=== PATIENT | male | born 1980 | race Caucasian/White ===

== ENCOUNTER 2017-07-24 15:55 | Inpatient (IN) | payer OTHER ==
[~2017-07-24] VITALS: Ht 180.3 cm; Wt 113.4 kg
[~2017-07-24 15:55] MED LIST: FLONASE2 SPRAY; IBUPROFEN800 MG PO; LIPITOR20 MG PO; NORCO 5-325 TA1 EACH PO; OMEPRAZOLE20 MG PO; PATANOL5 ML OU; PERCOCET 5-3251 EACH PO; SIMVASTATIN20 MG; SUDAFED30 MG PO
[2017-07-24] MEDS ORDERED: KEFLEX500 MG PO (16:16)
--- NOTE | 2017-07-24 16:46 | NUR ---
ADMISSION PROCESS COMPLETED. PT RESTING IN BED. FAMILY AT BEDSIDE. PT DENIES NEEDS AT THIS TIME
--- NOTE | 2017-07-24 18:30 | NUR ---
PT DIRECT ADMIT TODAY. PT AT OR FOR I&D OF PERIRECTAL ABCESS.
--- NOTE | 2017-07-24 18:59 | NUR ---
07/24/171858 Dimple Aparicio 1846: PT ARRIVES TO PACU C/O A HEADACHE. DENIES PAIN IN THE SURGICAL AREA. PT IS COUGHING, INTERNET RETAILER CHECKS HIS LUNGS AND REPORTS THEY ARE CLEAR.
--- NOTE | 2017-07-24 19:38 | NUR ---
PATIENT ARRIVES FROM PACU AT 1935 - ABD PAD BETWEEN BUTTOCKS AT SURGICAL SITE - SMALL AMOUNT OF BLOODY DRAINAGE
--- NOTE | 2017-07-24 21:01 | NUR ---
ABD PAD TO LUCIANA-RECTAL I@D SITE CHANGED, PATIENT HAS SCD'S IN PLACE.
--- NOTE | 2017-07-24 22:51 | NUR ---
PATIENT STANDS UP AT BEDSIDE, WALKS AT BEDSIDE, PAIN RATED 3/10 AT THIS TIME.
--- NOTE | 2017-07-25 | NUR ---
PATIENT PAIN WELL CONTROLLED AND RATED 2/10
--- NOTE | 2017-07-25 01:52 | NUR ---
PATIENT UP AND AMBULATES TO BATHROOM. VOIDS 950ML, ABD PAD CHANGED TO LUCIANA-RECTAL I&D SITE. MEDIUM AMOUNT OF SEROSANGUINEOUS FLUID ON CHANGED ABD PAD.
--- NOTE | 2017-07-25 05:46 | NUR ---
PATIENT HAD GOOD NIGHT. PAIN WELL CONTROLLED WITH MORPHINE. ABD PAD TO LUCIANA-RECTAL I&D SITE CHANGED NEEDED. IV FLUIDS AND IV ABX INFUSING PER ORDER. PATIENT HAS BEEN UP IN ROOM TO BATHROOM AND VOIDS. SCD'S WHILE IN BED.
--- NOTE | 2017-07-25 08:30 | NUR ---
PT RESTING IN BED. PT ON ROOM AIR, LUNG SOUNDS CLEAR. PT TOLERATING REGULAR DIET, DENIES NAUSEA, BOWEL TONES ACTIVE, PASSING FLATUS. PT ASSISTED WITH ORDERING BREAKFAST. PT CMS INATCT. PT WITH ABCESS TO LEFT BUTTOCK, DRAIN IN PLACE, ABD PAD CHANGED, MODERATE AMOUNT FO SEROSANGUINOUS FLUID. IV ABX INFUSING. PT DENIES PAIN AT THIS TIME. PT DENIES OTHER NEEDS AT THIS TIME.
[2017-07-25] MEDS ORDERED: PERCOCET 7.5-31 EACH PO (09:56)
[2017-07-25] MEDS ORDERED: CIPRO500 MG PO (09:56)
[2017-07-25] MEDS ORDERED: FLAGYL250 MG PO (09:57)
--- NOTE | 2017-07-25 10:19 | NUR ---
PT WALKING IN NORTH WITH FAMILY.
--- NOTE | 2017-07-25 13:07 | NUR ---
PATIENT TOOK A SITZ BATH THAN A SHOWER WITH THE HELP OF SINIFICANT OTHER.
--- NOTE | 2017-08-02 13:40 | OR ---
[facility] [address], [place] [address] Signed DATE OF PROCEDURE: 07/24/17 PREOPERATIVE DIAGNOSIS: Large left perirectal abscess. POSTOPERATIVE DIAGNOSIS: Large left ischial rectal abscess (complex). PROCEDURES Exam under anesthesia. Incision and drainage and culture of left ischiorectal abscess. Placement of taser type Ingalls drain as well as yellow vessel loop seton of perirectal space and packing with quarter-inch NuGauze. SURGEON: Miladys Tyler MD. ANESTHESIA: Saddle block with intravenous sedation. ANESTHESIOLOGIST: Hitesh De Anda CRNA INDICATION This 36-year-old white man is a patient Dr. Thierno Jolly, and Friday nearly a week ago, began having some left perirectal pain. Over the ensuing several days, he began having temperature as high as 101. He saw ROD Linton, in Dr. Jolly's office a d ay ago and was put on Keflex, has a firm, tender perirectal process as noted on the left side. I was called by Dr. Jolly today and asked to see the patient today at 3:00. He clearly has a large perirectal abscess, and on that basis, I have recommended incision, drainage and so on. He has been admitted to the hospital, given broad-spectrum antibiotics and so on. He understands the risks of bleeding, infection, possible development of qyjqykw-ym-scs long-term so forth and wished to proceed. Notably, his white count preoperatively was 15.9. Other lab studies of the CBC are normal as is the basic metabolic panel. FINDINGS A firm wall near the anal canal was noted in the left perirectal area. This was at least 4 fingerbreadths in size. Incision and drainage confirmed a very large complex abscess and with further evaluation, this is in fact an ischiorectal abscess. Ultimately, he was treated with complete drainage and irrigation, a seton-like yellow vessel loop placement not through the anal canal proper but lateral to it and placement of a knotted quarter-inch Amelia taser in the pararectal space. NuGauze packing was used as well for hemostasis. He tolerated procedure well. Notably, at the conclusion of operation upon body position change, he did have a slight bit of regurgitation of nonbilious material, which did cause a fair amount of coughing, Electronically Signed By: MILADYS TYLER MD 08/02/17 1340 PATIENT NAME: TEQUILA JIANG OPERATIVE REPORT DATE OF : 78 PHYSICIAN: MILADYS TYLER MD REPORT #: [id number] REPORT IS CONFIDENTIAL AND NOT TO BE RELEASED WITHOUT AUTHORIZATION [facility] [address], [place] [address] Signed but he is not known to have had aspiration proper. DESCRIPTION OF PROCEDURE The patient was brought to the operating room after undergoing saddle block anesthetic in the preop staging area. He was placed in the prone lisa-knife position. He was given intravenous sedation. Preoperative antibiotic meropenem had been given. Sequential compression device stockings were used. The buttocks were taped apart and the perianal tissue prepared with a Betadine based solution. Palpation of the left perianal area showed a broad plaque-like change without sign of skin erosion. There was a fluctuant mass. The incision was made a few centimeters only from the anoderm with an 11 blade and probing with a hemostat allowed for egress of copious amounts of foul-smelling purulent material. This area was probed more fully and the purulent material milked out. Photographs were taken. Gentle probing cephalad showed it extended to the pararectal space. A tonsil clamp was used to affirm this. It went up to about 7-8 cm. Lateral to the initial incision site, a counter incision was ultimately made and a yellow vessel loop passed between the 2 incision sites. This allowed for irrigation of the space with sterile saline solution. Once all the pus was removed, the firm plaque-like mass in the perirectal space was completely softened. Given the pararectal (ischiorectal) abscess as the dominant component of the problem, a quarter-inch Ingalls drain was made to have a knot in the end to allow for its retention into the wound. It was then gently passed alongside the rectum. There was some egress of blood and therefore a quarter-inch Nu Gauze was packed until good hemostasis was assured. Photographs were taken once again. A peripad was applied as were stretched shorts and returned to the supine position somewhat upright. This did allow for some apparent regurgitation, but not of bilious material or food or anything as the stomach was empty. This did cause a fair amount of coughing and so forth. I do not believe that he had an aspiration episode proper, however. The patient was taken to recovery room for further management, having suffered minimal blood loss. Miladys Tyler MD Electronically Signed By: MILADYS TYLER MD 08/02/17 2954 PATIENT NAME: TEQUILA JIANG OPERATIVE REPORT DATE OF : 78 PHYSICIAN: MILADYS TYLER MD REPORT #: [id number] REPORT IS CONFIDENTIAL AND NOT TO BE RELEASED WITHOUT AUTHORIZATION [facility] [address] [place] [address] Signed JM/Modl /[id number] cc: ROD Linton MD Electronically Signed By: MILADYS TYLER MD 08/02/17 1340 PATIENT NAME: TEQUILA JIANG OPERATIVE REPORT DATE OF : 78 PHYSICIAN: MILADYS TYLER MD REPORT #: [id number] REPORT IS CONFIDENTIAL AND NOT TO BE RELEASED WITHOUT AUTHORIZATION
--- NOTE | 2017-08-02 13:40 | HP ---
[facility] [address] [place], [place] [address] Signed DATE OF ADMISSION: 07/24/17 REASON FOR ADMISSION: Left perirectal abscess. HISTORY OF PRESENT ILLNESS This 36-year-old white man is known to me from the past, having undergone appendectomy in 2012. He works at the [employer], though he lives in [place]. 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 On Friday (today is ), he began having vague left abdominal pain and by Friday had fevers to 101-102 degrees. He was treated with Tylenol, which improved his fever, but his pain worsened and he was having difficulty sitting. By Friday, it was very painful to sit. On Friday, he had no fever and went to school, which he says was "a mistake" as his symptoms worsened. By Friday, his left perianal area was firm and quite painful and he saw a Physician Branch Employment Coordinator at Dr. Thierno Jolly's office where Keflex was prescribed. I was called by Dr. Jolly today with these findings and concern made for possible perirectal abscess. I saw him in my office at approximately 3:00 p.m. today where clinical examination is confirmatory of probable left perirectal abscess. He is admitted for further evaluation and care, likely to include incision and drainage of the abscess this evening. PAST MEDICAL HISTORY Rather unremarkable except for his appendectomy in 2012. He does have reflux disease and takes Prilosec and uses Atorvastatin for dyslipidemia. He has had some diarrhea and some constipation. There has been some question in the past whether he may have Crohn's disease, though that has not proven to be the case based on testing. REVIEW OF SYSTEMS He denies any shortness of breath or chest pain. He has had no dysphagia or dysuria. As far as eating, he has not had anything to eat essentially all day except for a few sips of water with Tylenol pills for pain. PHYSICAL EXAMINATION GENERAL: Pleasant white man who looks to be mildly uncomfortable. He does not look systemically toxic. He is accompanied by his . VITAL SIGNS: Blood pressure is 98/60, pulse 80, temperature 97.2, height 5 feet 11 inches, weight 250 pounds. NECK: Shows no thyromegaly or cervical adenopathy. Trachea is midline. He has no hoarseness. Electronically Signed By: MILADYS TYLER MD 08/02/17 1340 PATIENT NAME: TEQUILA JIANG HISTORY AND PHYSICAL DATE OF : 78 PHYSICIAN: MILADYS TYLER MD REPORT #: [id number] REPORT IS CONFIDENTIAL AND NOT TO BE RELEASED WITHOUT AUTHORIZATION [facility] [address] [place], [place] [address] Signed CHEST: Clear. HEART: Regular without murmur. ABDOMEN: Obese, but soft. RECTAL: Examination in the prone lisa-knife position shows a firm plaque-like thickening of the left perianal area consistent with nondrained abscess. There is local tenderness. The right side and anterior and posterior aspects are normal. EXTREMITIES: Show no clubbing, cyanosis, or edema. ASSESSMENT The patient almost certainly has a perirectal abscess. This may be greater in size than expected and indeed may be an ischiorectal abscess. I would recommend examination under anesthesia, incision and drainage and placement of drains as appropriate. The risks of bleeding, infection, and recurrence were reviewed in detail. There was a 10% chance he may develop a makhokd-xn-sfb, which may require advanced therapy as well. He understands this. MD ESTELLE Ramirez/Meena /[id number] cc: MD Griselda Sotelo PA-C Electronically Signed By: MILADYS TYLER MD 08/02/17 1340 PATIENT NAME: TEQUILA JIANG HISTORY AND PHYSICAL DATE OF : 78 PHYSICIAN: MILADYS TYLER MD REPORT #: [id number] REPORT IS CONFIDENTIAL AND NOT TO BE RELEASED WITHOUT AUTHORIZATION
== END 2017-07-25 12:10 | disposition home or self-care (01) | DRG 395 ==
LOC: MS 15:55
PROVIDERS: ADMIT Surgery
PROC: 0J9B00Z Drainage of Perineum Subcutaneous Tissue and Fascia with Drainage Device, Open Approach (ICD-10-PCS; principal; 2017-07-24 18:00)
PROC: 3E0234Z Introduction of Serum, Toxoid and Vaccine into Muscle, Percutaneous Approach (ICD-10-PCS; 2017-07-25)
DX: K61.3 Ischiorectal abscess (principal); K21.9 Gastro-esophageal reflux disease without esophagitis; E78.5 Hyperlipidemia, unspecified; Z23 Encounter for immunization
CPT/HCPCS: 00902; 62322; 80048; 85025; 87070; 87075; 87076; 87077; 87185; 87186; 87205; 90674; 94640; G0008; J1100; J2185; J2250; J2270; J2704; J3010; J7120

== ENCOUNTER 2019-11-15 21:39 | Emergency (ER) | payer OTHER ==
[~2019-11-15] VITALS: Ht 182.9 cm; Wt 124.7 kg
[~2019-11-15 21:39] MED LIST changes: +CIPRO500 MG PO; +FLAGYL250 MG PO; +IBUPROFEN600 MG PO; +KEFLEX500 MG PO; +MAPAP325 MG PO; +PERCOCET 7.5-31 EACH PO
== END 2019-11-15 23:04 | disposition home or self-care (01) ==
LOC: ED 21:39
DX: J20.9 Acute bronchitis, unspecified (principal); Z79.899 Other long term (current) drug therapy
CPT/HCPCS: 99284

== ENCOUNTER 2022-01-01 06:00 | Day surgery (SDC) | payer OTHER ==
[~2022-01-01] VITALS: Ht 182.9 cm; Wt 129.5 kg
--- NOTE | ~2022-01-01 | OR ---
[facility] [address] [place], [place] [address] Draft DATE OF OPERATION: 01/01/2022 SURGEON: Miladys Tyler MD PREOPERATIVE DIAGNOSIS: Left posterior vuwnhlq-cn-tks. POSTOPERATIVE DIAGNOSIS: Left posterior wghqzjl-oo-fnk. PROCEDURE: 1. Exam under anesthesia. 2. Anal fistulotomy. ANESTHESIA: Saddle block, Adri Melara CRNA and local 7 mL of 0.25% Marcaine with epinephrine. INDICATION: This 41-year-old white man has recurrent left perirectal abscess, which was treated by incision and drainage and placement of a yellow vessel loop seton. The seton has remained in place along with good fibrosis of the surrounding anorectal tissue can be relied upon. His initial 2nd drainage was on November 16, 2021. The risk of bleeding, infection, variable degrees of incontinence and so forth were all reviewed with him. He understands and wished to proceed. FINDINGS: The seton allowed for good fibrosis of the underlying soft tissue. Extensive excision was not required. Specifically, no significant anal muscle was divided. The site was divided with electrocautery and curettage. Examination showed no sign of persistent anal fistula to the anal canal. DESCRIPTION OF PROCEDURE: The patient was brought to the operating room after undergoing a saddle block anesthetic and placed in prone lisa-knife position. Buttocks were taped apart and the perirectal areas prepared with a chlorhexidine base solution. Digital examination showed no anorectal abnormality specifically. An anal retractor was then placed. In the left posterior aspect, a yellow vessel loop was well secured to the soft tissue. It did not emanate from the crypt itself and was somewhat superficial to it. It appeared that good fibrosis beneath the area of the seton was noted. The tissue was divided with electrocautery and the seton removed. Curettage was undertaken showing no sign of PATIENT NAME: TEQUILA JIANG OPERATIVE REPORT DATE OF : 78 REPORT #: [id number] PHYSICIAN: MILADYS TYLER MD PCP: TANA RANGEL REPORT IS CONFIDENTIAL AND NOT TO BE RELEASED WITHOUT AUTHORIZATION [facility] [address] [place], [place] [address] Draft extensive persistent fistula superiorly or deeply. The area was cauterized. 7 mL of 0.25% Marcaine with epinephrine injected locally. A peripad was applied. He is allowed to emerge from sedation and taken to the recovery room in good condition. MD ESTELLE Ramirez/MODL /[id number] cc: ROD Linton Copies: TANA RANGEL ~ PATIENT NAME: TEQUILA JIANG OPERATIVE REPORT DATE OF : 78 REPORT #: [id number] PHYSICIAN: MILADYS TYLER MD PCP: TANA RANGEL REPORT IS CONFIDENTIAL AND NOT TO BE RELEASED WITHOUT AUTHORIZATION
[~2022-01-01 06:00] MED LIST changes: +ACETAMINOPHEN500 MG PO; +CIPROFLOXACIN500 MG PO; +CONSTULOSE10 GM/15 M PO; +FLOMAX0.4 MG PO; +METAMUCIL0.4 GM PO; +METAMUCIL0.52 GM PO; +METRONIDAZOLE500 MG PO; +PRILOSEC OTC20 MG PO; +VENTOLIN HFA18 GM INH
[2022-01-01] MEDS ORDERED: ACETAMINOPHEN500 MG PO (08:10)
[2022-01-01] MEDS ORDERED: OXYCODON-ACETA1 EAC2 PO (08:10)
--- NOTE | 2022-01-01 08:49 | NUR ---
01/01/22 0849 Katelyn Cunha 0803 PT ARRIVED IN PACU WIDE AWAKE WITH NO C/O'S. 0815 DR AT BEDSIDE. ALL QUESTIONS ANSWERED. 0825 STANDING AT SIDE OF BED WITH 2 RN'S PRESENT. ABLE TO WALK AROUND DEPT WITH NO NUMBNESS OR TINGLING IN LEGS. 0835 DC'D VIA W/C. INSTRUCTIONS GIVEN TO AT CAR.
--- NOTE | 2022-01-01 10:57 | NUR ---
PT ALERT, ORIENTED AND SEEMS PREPARED. PT MENTIONED HIS WILL PICKUP FOLLOWING DC. PT THANKED ME FOR COMING BY. GAVE BLESSING, WILL FOLLOW
== END 2022-01-01 08:35 | disposition home or self-care (01) ==
LOC: DS 06:00
PROVIDERS: ATTEND Surgery
PROC: 0DQQ0ZZ Repair Anus, Open Approach (ICD-10-PCS; principal; 2022-01-01 06:45)
DX: K60.3 Anal fistula (principal); E66.01 Morbid (severe) obesity due to excess calories; J45.909 Unspecified asthma, uncomplicated; G47.30 Sleep apnea, unspecified; Z68.37 Body mass index [BMI] 37.0-37.9, adult
CPT/HCPCS: J0690; J1885; J2001; J2250; J2405; J2704; J7121

== ENCOUNTER 2022-05-16 07:00 | Day surgery (SDC) | payer OTHER ==
[~2022-05-16] VITALS: Ht 182.9 cm; Wt 134.5 kg
--- NOTE | ~2022-05-16 | OR ---
[facility] [address] [place], [place] [address] Draft DATE OF OPERATION: 05/16/2022 SURGEON: Miladys Tyler MD PREOPERATIVE DIAGNOSIS: Left lateral dqmncvy-vy-zuo. POSTOPERATIVE DIAGNOSES: 1. Left lateral rocjmon-vv-lsg. 2. Internal and external hemorrhoids. PROCEDURES: 1. Exam under anesthesia. 2. Rigid proctoscopy. 3. Placement of yellow vessel loop seton (extrasphincteric) and rectal biopsy. ANESTHESIA: Spinal with IV sedation, Trev Marie CRNA INDICATIONS: This 41-year-old white man originally presented to me in June 2017 with a complex left ischial rectal abscess. He underwent incision and drainage and placement of a knotted [place] drain into the ischiorectal space as well as the yellow vessel loop seton in the perirectal space. His symptoms resolved over time without development of a recurrent abscess or fistula. He underwent exam under anesthesia with incision and drainage of left posterior rectal abscess on January 20, 2019. All of that has healed up. He was once again seen and underwent incision and drainage of a posterior left of midline perianal abscess showing minimal fluid and a fair amount of fibrosis. A yellow vessel loop was placed. More recently he underwent exam under anesthesia and anal fistulotomy of the yellow vessel loop in the left anterolateral aspect, which has healed up completely. In the meantime, he has developed some swelling in the left space essentially in the ischiorectal area with spontaneous drainage of purulence and treatment with antibiotics by his primary provider, Dr. Jolly and also ROD Linton. Complete decompression was accomplished spontaneously. Examination shows a small defect most consistent with naxhggv-nq-doy. I have recommended exam under anesthesia as well as possible rectal mucosal advancement flap if the fistulous opening can be identified as well as debridement and coring out of PATIENT NAME: TEQUILA JIANG OPERATIVE REPORT DATE OF : 78 REPORT #: [id number] PHYSICIAN: MILADYS TYLER MD PCP: TANA RANGEL REPORT IS CONFIDENTIAL AND NOT TO BE RELEASED WITHOUT AUTHORIZATION [facility] [address] [place], [place] [address] Draft the fistula itself. The risk of bleeding, infection, and variable degrees of incontinence were identified and were reviewed with him. Additionally, if the internal opening on the fistula cannot be identified, then he may require a seton or other method of treatment to . He understands all of this and wished to proceed. FINDINGS: Quite clearly the fistulous opening was identified and it was in the direct midportion of the anal canal, not anterior or posterior particularly and approximately 3 cm from the anal verge. It was probed into the depths and was extrasphincteric essentially. The actual opening to the anal canal was not reliably identified. There was an area of inflammation in the crypt and actually in the lateral aspect, which was thought likely to be the site of origin of the tskrdrf-wj-asf rather than the posterior aspect, but this could not be ascertained entirely. Moreover, he has hemorrhoidal disease and redundancy of rectal mucosa and performance of an advancement flap in this setting without reliable opening was deemed inadvisable. Ultimately, a yellow vessel loop seton was placed through this area in question and is an extrasphincteric type seton. Options of management in the future are multiple but drainage of this fistulous opening has been accomplished though not definitively cured quite obviously. DESCRIPTION OF PROCEDURE: The patient was brought to the operating room after undergoing a spinal anesthetic and placed in prone lisa-knife position. The buttocks were taped apart. Rigid proctoscopy was undertaken. The patient had undergone a full bowel prep. I could not definitively determine a fistulous opening internally whether at the dentate line or more proximally. The fistula itself was quite obvious with the small dome of purulence about 3 cm from the anal verge proper. The buttocks were taped apart and the perineum prepared with the Betadine solution and draped sterilely. He did receive preoperative antibiotic cefoxitin and sequential compression device stockings were used and heparin subcutaneously administered. Using a fistula and metallic fistula probe, gentle interrogation of the fistulous opening was undertaken. The fistula appeared to be not superficial. Extended cephalad and medially towards the anal canal. With various maneuvers including use of a grooved director and so on, attempts were made to more definitively identify the fistulous opening. This included the use of an anal retractor and ultimately a bivalve speculum retractor. There appeared to be an area of inflammation, likely the source of the fistula in the left lateral aspect. Still I could not definitively connect to the site and therefore uncertain. He has internal and external hemorrhoidal changes and with various manipulations, more edema and so forth was noted. Performance of a mucosal advancement flap to definitively close the fistulous opening had been the intention of PATIENT NAME: TEQUILA JIANG OPERATIVE REPORT DATE OF : 78 REPORT #: [id number] PHYSICIAN: MILADYS TYLER MD PCP: TANA RANGEL REPORT IS CONFIDENTIAL AND NOT TO BE RELEASED WITHOUT AUTHORIZATION [facility] [address] [place] [place] [address] Draft the operation; considering that the definitive identification of the opening was not yet forthcoming, it was deemed inadvisable to perform a blind advancement flap at this point. With various manipulations, a yellow vessel loop seton was placed to the area, presumed to be the fistulous opening and secured. Quite obviously it was an extrasphincteric type seton. A 10 mL of 0.25% Marcaine with epinephrine injected locally. A thrombin Gel-Foam was placed into the anal canal. There was a fair amount of edema and some amount of weeping of blood was noted by this point. The patient tolerated the procedure well. BLOOD LOSS: Minimal. COMPLICATIONS: None. MD ESTELLE Ramirez/RYDERL /[id number] cc: ROD Linton MD Copies: TANA RANGEL RUSSELL BARR MD ~ PATIENT NAME: TEQUILA JIANG OPERATIVE REPORT DATE OF : 78 REPORT #: [id number] PHYSICIAN: MILADYS TYLER MD PCP: TANA RANGEL REPORT IS CONFIDENTIAL AND NOT TO BE RELEASED WITHOUT AUTHORIZATION
[~2022-05-16 07:00] MED LIST changes: +OXYCODON-ACETA1 EAC2 PO
--- NOTE | 2022-05-16 08:38 | NUR ---
PT ALERT, ORIENTED AND SUPPORTED BY HIS PARENTS. PT WAITING FOR RN TO START IV AND PREP. PT HAS HAD PROCEDURE PREVIOUS, HOPES THIS WILL TAKE CARE OF THIS REOCCURING ISSUE. PT PLEASANT, SEEMS PREPARED. REQUESTED PRAYER, GAVE BLESSING AND P THANKED ME FOR VISIT. WILL FOLLOW
--- NOTE | 2022-05-16 11:02 | NUR ---
05/16/22 1102 Gay Bob 1047 PT ARRIVED TO PACU ON RA AND WAKES EASILY. VSS. PT DENIES PAIN AND NAUSEA. 1055 PT ROLLED TO SIDE AND DRESSING CLEAN DRY INTACT. 1059 MD AT BEDSIDE TALKING TO PT. PT DENIES CONCERNS. PT EATING PUDDING. PLAN OF CARE DISCUSSED.
[2022-05-16] MEDS ORDERED: OXYCODON-ACETA1 EAC2 PO (11:22)
[2022-05-16] MEDS ORDERED: IBUPROFEN600 MG PO (11:22)
[2022-05-16] MEDS ORDERED: ACETAMINOPHEN500 MG PO (11:22)
[2022-05-16] MEDS ORDERED: METAMUCIL FIBE3.4 GM PO (11:23)
--- NOTE | 2022-05-17 15:43 | PATH ---
[facility] [address] [place], [place] [address] Signed SPECIMEN(S): A RECTAL BIOPSY SPECIMEN SOURCE: A. RECTAL BIOPSY CLINICAL HISTORY: Anorectal fistula. FINAL PATHOLOGIC DIAGNOSIS: Rectum, biopsy: - Colorectal mucosa with mild hyperplastic mucosal changes. - Negative for dysplasia or malignancy. NAL:cml:C2NR MICROSCOPIC EXAMINATION: Histologic sections of all submitted blocks are examined by light microscopy. These findings, together with the gross examination, support the pathologic diagnosis. GROSS DESCRIPTION: The specimen, labeled "JT, rectal biopsy," is received in formalin and consists of one cuadra soft tissue fragment that measures 0.6 cm in greatest dimension. The specimen is bisected and entirely submitted in cassette (A1). JS (under the direct supervision of a pathologist) The Gross Description was prepared using a voice recognition system. The report was reviewed for accuracy; however, sound-alike word errors, addition and/or deletions may occur. If there is any question about this report, please contact Client Services. PERFORMING LABORATORY: The technical component was performed by [facility], [address] [place] [address] (CLIA# [id number]). Professional interpretation was performed by [facility], [address] [address] (CLIA# [id number]). Diagnostician: Xenia Rebolledo MD Pathologist Electronically Signed 05/17/2022 PATIENT NAME: TEQUILA JIANG PATHOLOGY DATE OF : 78 REPORT #: [id number] PHYSICIAN: DEMETRA PATHOLOGY PCP: TANA RANGEL REPORT IS CONFIDENTIAL AND NOT TO BE RELEASED WITHOUT AUTHORIZATION [address] [address] Signed Copies: ~ PATIENT NAME: TEQUILA JIANG PATHOLOGY DATE OF : 78 REPORT #: [id number] PHYSICIAN: DEMETRA RAHMAN PCP: TANA RANGEL REPORT IS CONFIDENTIAL AND NOT TO BE RELEASED WITHOUT AUTHORIZATION
== END 2022-05-16 11:45 | disposition home or self-care (01) ==
LOC: DS 07:00
PROVIDERS: ATTEND Surgery
PROC: 0DBP8ZX Excision of Rectum, Via Natural or Artificial Opening Endoscopic, Diagnostic (ICD-10-PCS; principal; 2022-05-16 08:30)
PROC: 0DQQ7ZZ Repair Anus, Via Natural or Artificial Opening (ICD-10-PCS; 2022-05-16 08:30)
DX: K60.3 Anal fistula (principal); K64.8 Other hemorrhoids; K64.4 Residual hemorrhoidal skin tags; E66.01 Morbid (severe) obesity due to excess calories; Z68.41 Body mass index [BMI] 40.0-44.9, adult
CPT/HCPCS: J0694; J2001; J2250; J2405; J2704; J7121

== ENCOUNTER 2023-02-07 17:36 | Observation (INO) | payer OTHER ==
[~2023-02-07] VITALS: Ht 182.9 cm; Wt 125.4 kg
[~2023-02-07 17:36] MED LIST changes: +METAMUCIL FIBE3.4 GM PO; -OMEPRAZOLE20 MG PO
--- OUTSIDE RECORDS SUMMARY | 2023-02-07 17:38 | XMS ---
PreManage Notification: TEQUILA JIANG [employer] Provider Events No recent Security Events currently on file [facility] There are no care providers on record at this time. Vannessa has no Care Guidelines for this patient. Panchito VISIT COUNT (12 MO.) 1 DINH Jennings TOTAL 1 NOTE: Visits indicate total known visits. ED/C VISIT TRACKING (12 MO.) 02/07/2023 17:36 DINH Le [place] TYPE: Emergency COMPLAINT: - ABCESS INPATIENT VISIT TRACKING (12 MO.) No inpatient visits to display in this time frame [email or web address]
[2023-02-07] MEDS ORDERED: LISINOPRIL20 MG PO (19:17)
[2023-02-07] MEDS ORDERED: PHENTERMINE H37.5 M1 PO (19:17)
--- NOTE | 2023-02-07 22:05 | NUR ---
pt ARRIVED TO MEDSUR FLOOR FROM ER AT THIS TIME. pt ORIENTED TO ROOM AND DISCUSSED POC, pt VERBALIZED UNDERSTANDING. ADMISSION COMPLETE AND PRIMARY RN CODIE IN ROOM FOR ASSESSMENT. CALL LIGHT IN REACH. pt A/OX4, COMPLIANT WITH CARES.
[2023-02-07 22:16] VITALS: BP 138/71
--- NOTE | 2023-02-07 23:00 | NUR ---
AT RN STATION WITH pt's HOME CPAP MACHINE. RT ABISAI MADE AWARE AND TO ASSESS MACHINE.
--- NOTE | 2023-02-07 23:15 | NUR ---
Received report from ER nurse Neymar. Pt 2 RN skin assessment completed at this time. Pt assessment and intake complete, oriented to unit, RT called to check CPAP machine from home. Pt has no further complaint at this time, call light in reach, family at bedside.
--- NOTE | 2023-02-08 00:09 | NUR ---
IN pt room for pt complaint of fluid running from bottom. Pt able to assist with turning over for treatment - upon assessment, abscess has ruptured causing purulent drainage with some blood. Pt has reduced complaint of pain with no further complaint. Pt abscess site was cleansed with normal saline and gauze, placed gauze in gluteal fold, placed pt in brief. call light in reach.
--- NOTE | 2023-02-08 00:57 | NUR ---
IN pt room for rounding, changed gauze in gluteal fold which had become saturated with more purulent drainage. Continues to clean and drain site with manual pressure until scant serosanguinous fluid. Pt states pain is significantly reduced, no further complaint. Cleansed with saline and replaced gauze with no further complaint. call light in reach.
[2023-02-08 01:16] VITALS: BP 109/57
--- NOTE | 2023-02-08 03:21 | NUR ---
IN pt room for rounding. Pt has reduced complaint of pain, stating that the rupture of the abscess relieved pressure and pain. Pt has no further complaint, call light in reach.
--- NOTE | 2023-02-08 05:16 | NUR ---
IN pt room for rounding. Pt resing on back, eyes closed, CPAP in place, breathing even and unlabored, call light in reach no indication or complaint of pain
[2023-02-08 06:25] VITALS: BP 115/64
--- NOTE | 2023-02-08 08:18 | NUR ---
DR TYLER UPDATED ON PT STATUS AND ABCESS CHANGES LAST NIGHT PER REPORT. OREDERS TO KEEP PT NPO PENDING ROUNDS AND EVALUATION BY DR TYLER. ORDERS ALSO GIVEN FOR IV ABX, ORDERS ENTERED, REPEAT BACK PERFORMED. PTS PRIMARY RN UPDATED.
--- NOTE | 2023-02-08 10:15 | NUR ---
ROUNDED ON PT. PT IS A/O, LYING IN BED. RESPIRATIONS EVEN AND REGULAR. IV FLUIDS RUNNING. FAMILY AT BEDSIDE. DENIES NEEDS/COMPLAINTS ATT.
[2023-02-08 10:19] VITALS: BP 110/61
--- NOTE | 2023-02-08 10:50 | NUR ---
TO PT ROOM MD AT BEDSIDE TO ASSESS PT. NO PLAN FOR SURGERY. VO GIVEN FOR PT TO BE REMOVED FROM NPO.
--- NOTE | 2023-02-08 10:56 | NUR ---
TO PT ROOM FOR MEDICATION ADMINISTRATION. ASSISTED PT UP TO BEDSIDE COMMODE. DENIES ANY OTHER NEEDS/COMPLAINTS ATT. CALL LIGHT WITHIN REACH.
[2023-02-08] MEDS ORDERED: CIPRO500 MG PO (11:16)
[2023-02-08] MEDS ORDERED: FLAGYL375 MG PO (11:16)
[2023-02-08] MEDS ORDERED: MULTI VITAMIN1 EACH PO (11:57)
[2023-02-08] MEDS ORDERED: FIBER GUMMIES2 GM PO (11:57)
[2023-02-08] MEDS ORDERED: TURMERIC500 M3 PO (11:58)
--- NOTE | 2023-02-08 11:59 | NUR ---
MED REC COMPLETE
[2023-02-08 12:03] VITALS: BP 123/81
--- NOTE | 2023-02-08 12:13 | NUR ---
PT READY FOR DC. IV REMOVED, VS WNL. PT IS EATING LUNCH AND WAITING ON RIDE. WILL CALL WHEN SHE ARRIVES.
--- NOTE | 2023-02-09 13:02 | HP ---
[facility] [address], [place] [address] Signed ADMISSION DATE: 02/07/2023 PROBLEM: Recurrent left perirectal abscess. 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 He is well known to me from the past. He underwent incision and drainage of a perirectal abscess on the left side by me in December of 2018. He once again presented in October of 2021, where he was found to have recurrent abscess. It was considered graphic art sales representative of fistula in ANO. He underwent exam under anesthesia, where a left lateral fistula in ANO was identified. He had internal and external hemorrhoidal changes as well. Operation consisted of placement of yellow vessel seton. He had recovery generally, but self-referred to [place] in approximately June of 2022 where he was seen by Dr. Street, colorectal surgeon in [place]. He underwent a procedure of which he is uncertain for presumed fistula in ANO. This may have include a mucosal advancement flap or perhaps a fistula (uncertain to patient entirely). Today, he began having left perianal pain once again as well as swelling, but no drainage. He has had no fever or chills. His vital signs upon presentation today show a temperature of 98, a pulse of 97, blood pressure 105/67. He does not have nausea or vomiting. PAST MEDICAL HISTORY: Does include sleep apnea, use of CPAP device, recurrent perirectal abscess as described and no certainty as to Crohn disease by any means. He additionally has hypertension and reflux. MEDICATIONS: His current medications include lisinopril, phentermine, and omeprazole. ALLERGIES: He has no known drug allergies. PAST SURGICAL HISTORY: Includes appendectomy as well as left perirectal abscess drainage in the past as well as fistula in ANO development. PHYSICAL EXAMINATION: General: An obese white man who does not look systemically toxic at this time. Electronically Signed By: MILADYS TYLER MD 02/09/23 1302 PATIENT NAME: TEQUILA JIANG HISTORY AND PHYSICAL DATE OF : 78 REPORT #: [id number] PHYSICIAN: MILADYS TYLER MD PCP: TANA RANGEL REPORT IS CONFIDENTIAL AND NOT TO BE RELEASED WITHOUT AUTHORIZATION [facility] [address], [place] [address] Signed Vital signs: Temperature is 98, pulse is 97, blood pressure 105/67. HEENT: Trachea is midline. CHEST: Shows normal respiratory excursion. HEART: Pulses regular. ABDOMEN: Obese. PELVIS: Examination of the perianal area shows the soft, but somewhat protuberant area of the left perianal area without tense distention, but some tenderness on palpation. He has no generalized cellulitis. There is no drainage. 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 I would recommend he be admitted at this time, given IV antibiotics and re-examination for consideration of exam under anesthesia, possible drainage and other indicated procedures. It would be helpful to obtain operative notes performed by Dr. Street in [place], [place] to assess if his treatment plan included a mucosal advancement flap, a fistula plug or simple fistulotomy. He does not look anatomically like a fistulotomy from the exam I see at this time, however. He agrees with this approach. MD ESTELLE Ramirez/RYDERL /[id number] cc: MD Fadia Salas [place] Linda Harries, PA Copies: TANA RANGEL ~ Electronically Signed By: MILADYS TYLER MD 02/09/23 1302 PATIENT NAME: TEQUILA JIANG HISTORY AND PHYSICAL DATE OF : 78 REPORT #: [id number] PHYSICIAN: MILADYS TYLER MD PCP: TANA RANGEL REPORT IS CONFIDENTIAL AND NOT TO BE RELEASED WITHOUT AUTHORIZATION
== END 2023-02-08 12:40 | disposition home or self-care (01) ==
LOC: ED 17:36 → MS 17:37
PROVIDERS: ADMIT Surgery; ATTEND Surgery
DX: K61.1 Rectal abscess (principal); G47.30 Sleep apnea, unspecified; Z79.899 Other long term (current) drug therapy; Z20.822 Contact with and (suspected) exposure to COVID-19
CPT/HCPCS: 36415; 80053; 85025; 96372; 96374; 96375; 96376; 99284-25; C9803; G0378; J0694; J1644; J1885; J7121; U0003